=== PATIENT | male | born 1990 | race Two or more races ===

== ENCOUNTER 2016-10-24 16:42 | Emergency (ER) | payer OTHER ==
--- NOTE | ~2016-10-24 | CR126 ---
[facility] A Service of [facility] [place] & [facility] RADIOLOGY TEXT RESULTS PATIENT: ROSALBA GRAFF LOCATION: [facility] : [birth year] UNIT #: [id number] AGE: [address]: Eli Albrecht SEX: M ORDER DR: [id number] [facility] [address] [place], [place] [address] [id number] E MR#: [id number] Acc #: [id number] NAME: ROSALBA GRAFF : 1990 SEX: M STUDY DATE/TIME: 10/24/2016 18:30 UNIT: [facility] ROOM: STUDY DESCRIPTION: CR Foot Complete Min 3 View Lt Attending Physician: Eli Albrecht P.A.-C. Ordering Physician: Eli Albrecht P.A.-C. Primary Care Physician: No Primary Care Physician MEDICAL IMAGING REPORT This report is preliminary unless electronic signature is present EXAM Left foot. DATE OF EXAM 10/24/2016 HISTORY 26-year-old male with left foot pain, status post twisting injury today. COMPARISON None. FINDINGS 3 views of the left foot demonstrate no acute fracture or dislocation. Soft tissues are unremarkable. No joint effusion. IMPRESSION Unremarkable left foot. Dictated by... Armen Ball M.D. THIS IS AN ELECTRONICALLY VERIFIED REPORT Armen Ball M.D. at 10/28/2016 7:47 AM JUAQUIN/jeff TD: 10/25/2016 01:17 JOB #: [id number] MEDICAL IMAGING REPORT Page 1 of 1 COPY
--- NOTE | ~2016-10-24 | CR20 ---
[facility] A Service of [facility] & [facility] RADIOLOGY TEXT RESULTS PATIENT: ROSALBA GRAFF LOCATION: [facility] : [birth year] UNIT #: [id number] AGE: [address]: Eli Albrecht SEX: M ORDER DR: [id number] [facility] [address] [place], [place] [address] [id number] E MR#: [id number] Acc #: [id number] NAME: ROSALBA GRAFF : 1990 SEX: M STUDY DATE/TIME: 10/24/2016 18:28 UNIT: [facility] ROOM: STUDY DESCRIPTION: CR Ankle Min 3 Views Lt Attending Physician: Eli Albrecht P.A.-C. Ordering Physician: Eli Albrecht P.A.-C. Primary Care Physician: No Primary Care Physician MEDICAL IMAGING REPORT This report is preliminary unless electronic signature is present EXAM Left ankle 10/24/2016 HISTORY Left ankle pain status post twisting injury today. COMPARISON Left foot same date. FINDINGS 3 views of the left ankle demonstrate no acute fracture or dislocation. Ankle mortise symmetric. Talar dome intact. No ankle effusion. Soft tissues are unremarkable. IMPRESSION Unremarkable left ankle Dictated by... Armen Ball M.D. THIS IS AN ELECTRONICALLY VERIFIED REPORT Armen Ball M.D. at 10/28/2016 7:47 AM JUAQUIN/kyra TD: 10/25/2016 01:31 JOB #: [id number] MEDICAL IMAGING REPORT Page 1 of 1 COPY
== END 2016-10-24 19:20 | disposition home or self-care (01) ==
LOC: CED 16:42 → CFTX 16:42
DX: S93.402A Sprain of unspecified ligament of left ankle, initial encounter (principal); W19.XXXA Unspecified fall, initial encounter; Y92.009 Unspecified place in unspecified non-institutional (private) residence as the place of occurrence of the external cause
CPT/HCPCS: 29540; 73610; 73630; 99283